=== PATIENT | female | born 1940 | race Two or more races ===

== ENCOUNTER → 2018-03-15 | Outpatient (CLI) | payer MEDICARE, BC | END | disposition home or self-care (01) | LOC: HKI 12:06 | DX: M16.11 Unilateral primary osteoarthritis, right hip (principal) | CPT/HCPCS: 73523 ==

== ENCOUNTER → 2018-03-16 | Outpatient (CLI) | payer MEDICARE, BC | END | disposition home or self-care (01) | LOC: HKI 13:37 | DX: M16.11 Unilateral primary osteoarthritis, right hip (principal) | CPT/HCPCS: G0463 ==